=== PATIENT | male | born 1960 | race Caucasian/White ===

== ENCOUNTER 2018-07-18 21:41 | Observation (INO) ==
[2018-07-19] MEDS ORDERED: *HR* Dextrose 50 % in Water (Syg) 50 ML SYRINGE IVP PRN (06:05)
[2018-07-19] MEDS ORDERED: D5% in Water 1,000 ML IVC PRN (06:05)
[2018-07-19] MEDS ORDERED: Dextrose Gel 15 GM/37.5 ML TUBE PO PRN ×2 (06:05)
[2018-07-19 08:02] LABS: Basophils % 0.4 %; Eosinophils # 0.2 K/mcL (0.0-0.6); Eosinophils % 2.6 %; Hematocrit 37.4 % (37.5-50.1); Hemoglobin 11.9 g/dL (12.9-16.9); Immature Granulocytes % 0.7 % (0-4); Lymphocytes # 1.6 K/mcL (0.6-4.6); Lymphocytes % 21.4 %; Mean Corpuscular HGB Conc 31.8 g/dL (31.6-35.5); Mean Corpuscular Hemoglobin 27.1 pg (28.0-33.3); Mean Corpuscular Volume 85.2 fL (83.0-100.0); Mean Platelet Volume 10.9 fL (9.4-12.4); Monocytes # 0.6 K/mcL (0.0-1.3); Monocytes % 7.7 %; Neutrophils # 4.9 K/mcL (1.6-8.9); Platelet Count 234 K/mcL (140-400); Red Blood Count 4.39 M/mcL (4.19-5.50); Red Cell Distribution Width 14.1 % (11.5-14.5); Segmented Neutrophils % 67.2 %
[2018-07-19 08:12] LABS: Prothrombin Time 11.5 Seconds (9.4-12.1)
[2018-07-19 08:15] LABS: Activated Partial Thrombo Time 31.2 Seconds (26.0-36.0)
--- NOTE | 2018-07-19 08:39 | Internal Med History&Physical ---
Date of Encounter: 07/20/18 Time of Encounter: 09:00 Internal Medicine - H&P: HPI Chief complaint: CP History of present illness: Mr. Gonzalez is a 58 year old male gentleman with PMH significant for end stage COPD and end stage CHF with systolic disfunction, severe dilated cardiomyopathy, was evaluated at [facility] FOR LVAD but did not like their service. He presented today with CP on the left side that started last night . The pain is intermittent and associated with SOB and diaphoresis. The patient has a reported EF 15%, AICD in place, he follow with cardiology in [place]. He was evaluated by the ER ot OSH and his initial trop was 0.03. Past Med Surg Social Fam HX - Past Medical History Medical history: cardiomyopathy, CHF, COPD, coronary artery disease, DVT, diabetes, hyperlipidemia, hypertension, renal disease Additional medical history: NICM Psychiatric history: no psych history - Past Surgical History Surgical History: angioplasty/stent, cholecystectomy, orthopedic, other, pacemaker/AICD Additional surgical history: RIGHT SHOULDER. BACK SURGERY. L TKR - Social History Smoking Status: Former smoker Smokeless Tobacco Status: Yes (chew tobacco) Alcohol use: none Drug use: none - Family History Mother Living Status: Age at : 54 Cause of : enlarged heart Hx Family Cardiac Disorders: Yes (Enlarged heart) Hx Family Endocrine Disorder: Yes (DM) Father History Unknown: Yes Internal Medicine - H&P: Meds Bumetanide 2 mg PO TID 06/06/18 [History] Clopidogrel [Plavix] 75 mg PO DAILY 06/06/18 [History] Insulin Glargine,Hum.rec.anlog [Kain Sanchez U-100] 10 unit SQ QAM 06/06/18 [History] Potassium Chloride [K-Tab ER] 10 meq PO DAILY 06/06/18 [History] Albuterol Sulfate [Ventolin Hfa] 2 puff IH Q6H PRN 07/19/18 [History] Carvedilol 12.5 mg PO BID 07/19/18 [History] hydrALAZINE [HydrALAZINE] 25 mg PO TID 07/19/18 [History] ALPRAZolam [Xanax 0.5 MG Tablet] 0.5 mg PO HS PRN 07/20/18 [History] Aspirin [Adult Aspirin Regimen] 81 mg PO QAM 07/20/18 [History] Atorvastatin Calcium [Lipitor] 80 mg PO HS 07/20/18 [History] Gabapentin 600 mg PO TID 07/20/18 [History] Insulin Glargine,Hum.rec.anlog [Basaglar Cam[place] U-100] 68 unit SQ HS 07/20/18 [History] OxyCODONE/APAP 10/325 [Percocet 10/325 MG] 1 tab PO QID 07/20/18 [History] Isosorbide MONOnitrate (24 HR) [Imdur] 30 mg PO DAILY #30 tab.er.24h 07/21/18 [R x] Lisinopril [Zestril] 5 mg PO DAILY #30 tablet 07/21/18 [Rx] Allergy/AdvReac Type Severity Reaction Status Date / Time No Known Allergies Allergy Verified 08/26/15 18:47 All Systems PM: A 10-system review of systems was performed and is negative for pertinent findings except as documented above in the HPI. - Constitutional Vitals: Temp Pulse Resp BP Pulse Ox 97.9 F 66 16 157/77 97 07/19/18 07:20 07/19/18 07:20 07/19/18 07:20 07/19/18 07:20 07/19/18 07:20 Exam: awake present. no chest pain, pressure or palpitations. denies having sob with exertion. stress test preformed and reviewed by cardiology and fixed defect noted but no r eversible defects or ischemia noted. Stable for dc to home with outpt fu. General: awake, alert, appears stated age Cardiovascular:regular rate and rhythm, normal S1 & S2, no rubs, murmurs or gallops. No JVD. no lower extremity edema Lungs:Normal breath sounds, no wheezes, or crackles. Normal respiratory effort on room air Abdomen:Soft, non-tender, non-distended, + bowel sounds Neurological: AAOx3 Internal Med - H&P Results - Labs CBC & Chem 7: 07/21/18 05:57 07/21/18 05:57 Labs: Short CBC 07/19/18 Range/Units 06:36 WBC 7.3 (4.3-11.1) K/mcL Hgb 11.9 L (12.9-16.9) g/dL Hct 37.4 L (37.5-50.1) % Plt Count 234 (140-400) K/mcL Neutrophils # 4.9 (1.6-8.9) K/mcL - Assessment and Plan (1) Chest pain Status: Resolved Assessment and plan: CP in sitting of hx of cardiomyopathy with EF of 10%. No acute ECG changes, troponin first set is negative Hx of LHC in 2016 at [facility], We will obtain records We will trend cardiac enzyms Obtain 2 D echo Consult cardiology. Qualifiers: Chest pain type: other chest pain Qualified Code(s): R07.89 - Other chest pain; R07.8 - Other chest pain (2) Diabetes type 2, controlled Status: Chronic Assessment and plan: We will start insulin sliding scale with coverage Qualifiers: Diabetes mellitus fci insulin use: with ad terminal makeup operator use Diabetes mellitus complication status: with kidney complications Chronic kidney disease stage: stage 3 (moderate) Qualified Code(s): E11.22 - Type 2 diabetes mellitus with diabetic chronic kidney disease; N18.3 - Chronic kidney disease, stage 3 (moderate); Z79.4 - half-way (current) use of insulin (3) COPD (chronic obstructive pulmonary disease) Status: Chronic Assessment and plan: We will start [place] PRN Qualifiers: COPD type: emphysema Emphysema type: unspecified Qualified Code(s): J43.9 - Emphysema, unspecified (4) Cardiomyopathy Status: Chronic Assessment and plan: We will repeat 2D echo Qualifiers: Cardiomyopathy type: unspecified Qualified Code(s): I42.9 - Cardiomyopathy, unspecified (5) CAD (coronary artery disease) Status: Chronic Assessment and plan: We will continue home meds Qualifiers: Coronary Disease-Associated Artery/Lesion type: [place] artery [place] vs. transplanted heart: [place] heart Associated angina: angina presence unspecified Qualified Code(s): I25.10 - Atherosclerotic heart disease of [place] coronary artery without angina pectoris (6) DVT prophylaxis Status: Acute - Time Spent With Patient Total time spent is greater than 50% in coordination of care (as documented) at patient's floor/unit and/or counseling patient:
[2018-07-19] MEDS ORDERED: Ondansetron 4 MG/2 ML VIAL IVP PRN (08:42)
[2018-07-19] MEDS ORDERED: Naloxone 0.4 MG/ML INJ IVP PRN (08:42)
[2018-07-19] MEDS ORDERED: *HR* HYDROcodone/Acet 5/325 mg TABLET PO PRN (08:42)
[2018-07-19] MEDS ORDERED: Acetaminophen 325 MG TABLET PO PRN (08:42)
[2018-07-19 08:49] LABS: Estimated Average Glucose 249 mg/dl; Hemoglobin A1C 10.3 %
[2018-07-19 08:56] LABS: Albumin 3.6 g/dL (3.5-5.7); Albumin/Globulin Ratio 1.1 (1.1-2.2); Bilirubin,Total 0.5 mg/dL (0.3-1.0); Calcium 8.9 mg/dL (8.6-10.3); Globulin 3.4 g/dL (2.4-3.5); Potassium 3.3 mEq/L (3.5-5.1); Troponin I 0.03 ng/mL (< 0.04)
[2018-07-19] MEDS ORDERED: ALPRAZolam 0.5 MG TABLET PO SCH (09:00)
[2018-07-19] MEDS ORDERED: Isosorbide MONOnitrate (24 HR) 30 MG TAB.ER.24H PO SCH (09:00)
[2018-07-19] MEDS: Bumetanide 1 MG TABLET PO SCH (10:08)
[2018-07-19] MEDS: *HR* OxyCODONE/APAP 10/325 TABLET PO PRN ×3 (10:09→23:14)
[2018-07-19] MEDS: Aspirin Enteric Coated 81 MG Tablet PO SCH (10:09)
[2018-07-19] MEDS: Insulin LISPRO 300 UNITS/3 ML VIAL SQ SCH ×4 (11:23→18:04)
--- NOTE | 2018-07-19 12:41 | Cardiology Consult Note ---
Date of Encounter: 07/19/18 Time of Encounter: 12:00 Assessment and Plan Discussion w patient/family: [employer] glitch will not allow for A/P: 1.) Chest pain Atypical/typical features. No acute ECG changes, troponin negative x3. Chest pain free upon exam. Hx of CAD s/p PCI (BMS) to LAD and d RCA at [facility] in July 2015. Recommend nuclear stress test to further evaluate for ischemia. 2.) Cardiomyopathy (mixed) Long standing hx of cardiomyopathy, initially diagnosed in 2008, EF has been as low as 10%. Describes NYHA class III symptoms, stable. Previously followed with [facility], however stopped d/t transportation issues and improved/stable symptoms. Recent ICD gen change 05/[address] Oviedo. Hx of PCI to LAD, dRCA in 2015 at [facility] Now with mixed cardiomyopathy. Most recent TTE demonstrated improved LVEF, 35-40-% in 2018. Continue current CV medications including BB, ACEi, and bumex. Clinically appears euvolemic upon exam. Stricti I&O's, daily weights, Na/fluid restricted diet. 3.) CAD Plan as above. The assessment and plan as outlined above was discussed with the patient and/or family members who expressed understanding and agreement. All questions were answered. Thank you for involving us in the care of your patient. Please call with any questions. The patient will be discussed and reviewed with Dr. Rios; changes to be made accordingly. History of Present Illness Consult date: 07/19/18 Requesting physician: María Akhtar Consult reason: Chest pain Chief complaint: Chest pain History of present illness: Mr. Gonzalez is a 58 year old male with reported hx of NICMP dating back to 2008, CAD s/p PCI, DMII, HTN, HLD, and CKD who presented to the ED with complaints of intermittent chest discomfort that has been ongoing for the past 2 days. Chest discomfort described as nonradiating midsternal heaviness that lasted for seconds at a time and improved without intervention. Associated symptoms include diaphoresis and dyspnea. Patient previously followed at [facility] advanced heart failure clinic, however EF improved. Recent ICD gen change in May with Dr. Oviedo. Troponin negative x3. No acute ischemic ECG changes noted. Most recent CV testing: TTE 03/2018: LVEF 35-40%, global LV systolic dysfunction, severely dilated LV, mild AR, mild-moderate MR [facility] 08/2015: s/p successful PCI to mLAD and dRCA, severely elevated right and left filling heart pressures Past Med Surg Social Fam HX - Past Medical History Attestation: Yes The following information was validated with the patient. Source: patient Medical history: cardiomyopathy, CHF, COPD, coronary artery disease, DVT, diabetes, hyperlipidemia, hypertension, renal disease Additional medical history: NICM Psychiatric history: no psych history - Past Surgical History Surgical History: angioplasty/stent, cholecystectomy, orthopedic, other, pacemak er/AICD Additional surgical history: RIGHT SHOULDER. BACK SURGERY. L TKR - Social History Smoking Status: Former smoker Smokeless Tobacco Status: Yes (chew tobacco) Alcohol use: none Drug use: none - Family History Mother Living Status: Age at : 54 Cause of : enlarged heart Hx Family Cardiac Disorders: Yes (Enlarged heart) Hx Family Endocrine Disorder: Yes (DM) Father History Unknown: Yes Medications and Allergies Gabapentin [Neurontin] 600 mg PO TID 08/26/15 [History] Oxycodone HCl/Acetaminophen [Percocet 10-325 mg Tablet] 1 tab PO Q6HR PRN 08/26/15 [History] ALPRAZolam [Xanax 0.25 MG Tablet] 0.5 mg PO HS 06/06/18 [History] Atorvastatin [Lipitor] 80 mg PO DAILY 06/06/18 [History] Bumetanide 2 mg PO TID 06/06/18 [History] Clopidogrel [Plavix] 75 mg PO DAILY 06/06/18 [History] Insulin Glargine,Hum.rec.anlog [Basaglar Kwikpen U-100] 10 unit SQ QAM 06/06/18 [History] Insulin Glargine,Hum.rec.anlog [Lantus Solostar] 70 unit SQ HS 06/06/18 [History] Potassium Chloride [K-Tab ER] 10 meq PO DAILY 06/06/18 [History] Aspirin [Lo-Dose Aspirin EC] 81 mg PO DAILY 07/19/18 [History] Carvedilol 12.5 mg PO BID 07/19/18 [History] Ventolin Hfa 07/19/18 [History] hydrALAZINE [HydrALAZINE] 25 mg PO TID 07/19/18 [History] Allergy/AdvReac Type Severity Reaction Status Date / Time No Known Allergies Allergy Verified 08/26/15 18:47 All Systems Review: The remainder of the systems were reviewed and are negative - Cardiovascular Cardiovascular: as per HPI Physical Examination Vital Signs, Last 4 Hours Temp Pulse Resp BP Pulse Ox 07/19/18 11:08 97.8 F 62 16 178/88 98 General: Conversant, Other (morbidly obese) HEENT: Atraumatic, Normocephaly Cardiac: Reg Rate and Rhythm, Normal S1 and S2 Lungs: Normal Breath Sounds Neuro: Alert and responsive Abdomen: Soft Skin: No rashes noted on visualized skin Musculoskeletal: No Chest Wall Tenderness Extremities: Other (mild, non-pitting BLE edema) Results 07/19/18 06:36 07/19/18 06:36 Lab Results 07/19/18 07/19/18 07/19/18 06:36 06:36 06:36 WBC 7.3 Hgb 11.9 L Hct 37.4 L Plt Count 234 INR 1.0 APTT 31.2 Sodium 138 Potassium 3.3 L Chloride 101 Carbon Dioxide 27 BUN 22 H Creatinine 2.10 H Glucose 259 H Calcium 8.9 Total Bilirubin 0.5 AST 12 L ALT 9 Alkaline Phosphatase 181 H Troponin I 0.03 Active Medications Acetaminophen (Tylenol) 650 mg PO Q6HR PRN PRN Reason: Mild Pain/Fever Stop: 01/18/19 08:43 Alprazolam (Xanax) 0.5 mg PO DAILY [facility]; Protocol Stop: 01/18/19 09:01 Last Admin: 07/19/18 10:02 Dose: Not Given Documented by: Aspirin (Aspirin Ec) 81 mg PO DAILY [facility] Stop: 01/18/19 09:01 Last Admin: 07/19/18 10:09 Dose: 81 mg Documented by: Atorvastatin Calcium (Lipitor) 80 mg PO DAILY [facility] Stop: 01/18/19 09:01 Last Admin: 07/19/18 10:09 Dose: 80 mg Documented by: Bumetanide (Bumex) 2 mg PO DAILY [facility] Stop: 01/18/19 09:01 Last Admin: 07/19/18 10:08 Dose: 2 mg Documented by: Carvedilol (Coreg) 12.5 mg PO BIDWM [facility] Stop: 01/18/19 11:31 Last Admin: 07/19/18 11:33 Dose: 12.5 mg Documented by: Clopidogrel Bisulfate (Plavix) 75 mg PO DAILY [facility] Stop: 01/18/19 09:01 Last Admin: 07/19/18 10:09 Dose: 75 mg Documented by: Dextrose/Water (Dextrose 50% (Syg)) 25 ml IVP AD PRN PRN Reason: Hypoglycemia Stop: 01/18/19 06:06 Gabapentin (Neurontin) 600 mg PO BID [facility] Stop: 01/18/19 21:01 Glucagon (Glucagen) 1 mg IM ONCE PRN PRN Reason: Hypoglycemia Stop: 01/18/19 06:06 Glucose (Gluctose) 15 gm PO ONCE PRN PRN Reason: Hypoglycemia Stop: 01/18/19 06:06 Glucose (Gluctose) 30 gm PO ONCE PRN PRN Reason: Hypoglycemia Stop: 01/18/19 06:06 Hydralazine HCl (Hydralazine) 25 mg PO TID [facility] Stop: 01/18/19 15:01 Dextrose (Dextrose 5%) 1,000 mls @ 100 mls/hr IVC .Q10H PRN PRN Reason: HYPOGLYCEMIA Stop: 01/18/19 06:06 Insulin Human Lispro (Humalog) 0 units SQ Q6HR [facility]; Protocol Stop: 01/18/19 12:01 Last Admin: 07/19/18 11:23 Dose: Not Given Documented by: Insulin Human Lispro (Humalog) 0 units SQ Q6HR [facility]; Protocol Stop: 01/18/19 12:01 Last Admin: 07/19/18 11:23 Dose: Not Given Documented by: Isosorbide Mononitrate (Imdur) 30 mg PO DAILY [facility] Stop: 01/18/19 09:01 Last Admin: 07/19/18 10:02 Dose: Not Given Documented by: Lisinopril (Zestril) 5 mg PO DAILY [facility]; Protocol Stop: 01/18/19 09:01 Last Admin: 07/19/18 10:03 Dose: Not Given Documented by: Naloxone HCl (Narcan) 0.4 mg IVP Q2MPRN PRN PRN Reason: SEE COMMENTS Stop: 01/18/19 08:43 Ondansetron HCl (Zofran) 4 mg IVP Q8HR PRN PRN Reason: Nausea And Vomiting Stop: 01/18/19 08:43 Oxycodone/Acetaminophen (Percocet 10/325) 1 each PO Q6HR PRN PRN Reason: Pain Stop: 01/18/19 09:13 Last Admin: 07/19/18 10:09 Dose: 1 each Documented by: - Imaging and Cardiology Echo: report reviewed Cardiac cath: report reviewed - EKG Interpretation EKG results cardiology: personally reviewed Consult Discharge Plan - Plan Referrals: Augustus Oviedo MD [Primary Care Provider] -
[2018-07-19] MEDS: hydrALAZINE 25 MG TABLET PO SCH ×2 (15:37→20:54)
[2018-07-19] MEDS ORDERED: Perflutren Lipid Microsphere 1.3 ML in 0.9 % Sodium Chloride 8.7 ML IVP ONE (16:10)
[2018-07-19] MEDS ORDERED: Isosorbide MONOnitrate (24 HR) 30 MG TAB.ER.24H PO PRN (19:44)
[2018-07-19] MEDS: Gabapentin 300 MG CAPSULE PO SCH (20:54)
[2018-07-19] MEDS: ALPRAZolam 0.5 MG TABLET PO SCH (20:55)
[2018-07-19] MEDS ORDERED: Gabapentin 300 MG CAPSULE PO SCH (21:00)
[2018-07-20] MEDS: Insulin LISPRO 300 UNITS/3 ML VIAL SQ SCH ×4 (01:11→17:57)
[2018-07-20 01:43] LABS: Basophils % 0.5 %; Eosinophils # 0.2 K/mcL (0.0-0.6); Eosinophils % 2.6 %; Hematocrit 34.7 % (37.5-50.1); Hemoglobin 11.4 g/dL (12.9-16.9); Immature Granulocytes % 0.5 % (0-4); Lymphocytes # 1.4 K/mcL (0.6-4.6); Lymphocytes % 21.3 %; Mean Corpuscular HGB Conc 32.9 g/dL (31.6-35.5); Mean Corpuscular Hemoglobin 27.4 pg (28.0-33.3); Mean Corpuscular Volume 83.4 fL (83.0-100.0); Mean Platelet Volume 10.7 fL (9.4-12.4); Monocytes # 0.5 K/mcL (0.0-1.3); Monocytes % 7.8 %; Neutrophils # 4.3 K/mcL (1.6-8.9); Platelet Count 221 K/mcL (140-400); Red Blood Count 4.16 M/mcL (4.19-5.50); Segmented Neutrophils % 67.3 %
[2018-07-20 01:53] LABS: Prothrombin Time 11.4 Seconds (9.4-12.1)
[2018-07-20 01:56] LABS: Activated Partial Thrombo Time 31.5 Seconds (26.0-36.0)
[2018-07-20 02:03] LABS: Albumin 3.3 g/dL (3.5-5.7); Albumin/Globulin Ratio 1.1 (1.1-2.2); Bilirubin,Total 0.5 mg/dL (0.3-1.0); Calcium 8.6 mg/dL (8.6-10.3); Chol/HDL Ratio 6.1 (0-4.9); Globulin 3.1 g/dL (2.4-3.5); Phosphorous 3.4 mg/dL (2.7-4.5); Potassium 3.6 mEq/L (3.5-5.1); Total Protein 6.4 g/dL (6.4-8.9)
[2018-07-20] MEDS ORDERED: Regadenoson 0.4 MG/5 ML SYRINGE IVP ONE (06:06)
[2018-07-20] MEDS: Aspirin Enteric Coated 81 MG Tablet PO SCH (10:36)
[2018-07-20] MEDS: Gabapentin 300 MG CAPSULE PO SCH ×2 (10:36→20:40)
[2018-07-20] MEDS: Bumetanide 1 MG TABLET PO SCH (10:36)
[2018-07-20] MEDS: hydrALAZINE 25 MG TABLET PO SCH ×2 (10:36→13:51)
[2018-07-20] MEDS: *HR* OxyCODONE/APAP 10/325 TABLET PO PRN ×2 (10:38→20:40)
--- NOTE | 2018-07-20 14:08 | Internal Med Progress Note ---
<Ptaricia Jensen - Last Filed: 07/20/18 14:17> Hospitalist Progress Note - Encounter Date of Encounter: 07/20/18 - Exam Vitals: Temp Pulse Resp BP Pulse Ox 98.2 F 68 16 170/88 99 07/20/18 11:54 07/20/18 11:54 07/20/18 11:54 07/20/18 11:54 07/20/18 11:54 - Assessment and Plan (1) Diabetes type 2, controlled Current Visit: No Status: Chronic (2) COPD (chronic obstructive pulmonary disease) Current Visit: No Status: Chronic (3) Cardiomyopathy Current Visit: Yes Status: Acute (4) CAD (coronary artery disease) Current Visit: Yes Status: Acute - Time Spent with Patient Total time spent is greater than 50% in coordination of care (as documented) at patient's floor/unit and/or counseling patient: Internal Medicine: Result - Labs CBC & Chem 7: 07/20/18 01:19 07/20/18 01:19 Labs: Short CBC 07/20/18 Range/Units 01:19 WBC 6.4 (4.3-11.1) K/mcL Hgb 11.4 L (12.9-16.9) g/dL Hct 34.7 L (37.5-50.1) % Plt Count 221 (140-400) K/mcL Neutrophils # 4.3 (1.6-8.9) K/mcL BMP 07/20/18 01:19 Sodium 139 Potassium 3.6 Chloride 104 Carbon Dioxide 28 BUN 24 H Creatinine 1.97 H Glucose 235 H Calcium 8.6 Cardiac Enzymes 07/19/18 07/19/18 07/20/18 Range/Units 13:46 19:30 01:19 Troponin I < 0.03 < 0.03 < 0.03 (< 0.04) ng/mL Liver Function 07/20/18 Range/Units 01:19 Total Bilirubin 0.5 (0.3-1.0) mg/dL AST 11 L (13-39) Units/L ALT 8 (7-52) Units/L Alkaline Phosphatase 160 H (34-104) Units/L Albumin 3.3 L (3.5-5.7) g/dL - ABG Interpretation ABG results: PT/INR, D-dimer PT 11.4 Seconds (9.4-12.1) 07/20/18 01:19 - Impressions Impressions Echocardiogram Limited Views 07/19/18 08:45 Impressions: LVEF 40%. Global left ventricular systolic dysfunction. Moderately dilated left ventricle. Left Ventricular Wall Motion: Rest Echo Findings The apex, apical inferior, mid inferior, basal inferior, apical anterior, mid anterior, basal anterior, apical septal, mid inferior septal, basal inferior septal, apical lateral, mid anterior lateral, basal anterior lateral, mid anterior septal, mid inferior lateral, basal anterior septal and basal inferior lateral [place] were hypokinetic. Findings: Study Quality * Technically adequate exam. ECG Findings * Normal sinus rhythm. Left Ventricle * LVEF 40%.Global left ventricular systolic dysfunction.. * Moderately dilated left ventricle. * Definity echo contrast was used. * Atypical septal motion noted. * There is no LV thrombus. * Consult Discharge Plan - Plan Referrals: Latanya Gerardo, BOTTLING [employer] OPERATOR [Advanced Practice Nurse] - 08/04/18 8:15 am - Attending Attestation I examined this patient and my medical decision-making was reviewed with the Resident Physician Dr Rolle. I agree with the documented findings, disposition and treatment plan as described except to the extent set forth below. Mr Gonzalez is being observed for chest pain with a significant history of end stage CHF with prior heart transplant/LVAD eval awake, appears to be minimizing his sxs and sits at bedside rolling her eyes and shaking her head. He denies any pain or pressure since admission. no sob or palpitations. Has had nausea at times which he related to be ing npo. He says he doesn't really have to follow a fluid restriction at home or he gets dehydrated but it used to be 2L and that he is comfortable with his weight shifting about 7.5-10 lbs at home which is routinely does. He left room to go to bathroom and states he has over the last few weeks been very sob with any exertion, also at rest, gets hot sweats, nauseased and te lls her he is having chest pain and his heart is "fluttering". gen- alert, awake,appears stated age eyes- pupils equal round cv- reg rate and rhythm, normal s1,s2 lungs- ctabl, no wheezing, rhonchi or crackles neuro- AAOx3, CN grossly intact Chest Pain Hx CAD s/p PCI to LAD and RCA AICD Dilated CM with outpt EF 15% -trops neg, echo here reviewed and appears to have regained some function EF 40 % with global LV dysfunction -awaiting stress test, plan is for tomorrow -cards following -cont home med regimen CKD, stage UK-appears at baseline, cont to monitor DM- home insulin dosing lantus 10 q am and 70 q hs--given he will be npo p mn will decrease home HS insulin to 30 tonight, prn hypoglycemics + SSI further diagnoses and plan as noted by resident <Jos Rolle - Last Filed: 07/20/18 19:38> Hospitalist Progress Note - Encounter Date of Encounter: 07/20/18 Time of Encounter: 09:00 - Subjective Interval History: Patient was seen and examined at bedside. He states that he is feeling well today. Denies having any shortness of breath or chest pain. He is scheduled for a stress test tomorrow. He will be nothing by mouth at midnight. He is not currently requiring any oxygen. - Exam Vitals: Temp Pulse Resp BP Pulse Ox 98.2 F 68 16 170/88 99 07/20/18 11:54 07/20/18 11:54 07/20/18 11:54 07/20/18 11:54 07/20/18 11:54 Exam: General: A&O X3, conversant, no acute distress Head: atraumatic, normocephalic Eye: PERRL, EOMI, conjuntiva pink, sclera anicteric Neck: Supple, trachea midline; No lymphadenopathy Respiratory: CTAB. No accessory muscle use, wheezes, rales, or rhonchi Cardiovascular: RRR, +S1, +S2; no murmurs, rubs, gallops Abdomen: Soft, nontender Extremities: warm, radial pulses palpable and symmetrical Psychiatric: Normal affect, normal mood Skin: Dry, intact - Assessment and Plan (1) Chest pain Current Visit: Yes Status: Acute Assessment and Plan: - Initially presented with chest pain - He has a known cardiac history; history of CAD status post PCI - Ischemic workup so far has been negative; troponin negative Plan: - Cardiology is consulted - He is nothing by mouth at midnight - Will undergo stress test tomorrow (2) Cardiomyopathy Current Visit: Yes Status: Acute Assessment and Plan: - History of cardiomyopathy with AICD placement - Most recent TTE demonstrated improved LVEF, 35-40-% in 2018 Plan - Cardiology following (3) Diabetes Current Visit: Yes Status: Acute Assessment and Plan: - Sliding scale insulin (4) Chronic kidney disease Current Visit: Yes Status: Acute Assessment and Plan: - Repeat a.m. labs - Time Spent with Patient Total time spent is greater than 50% in coordination of care (as documented) at patient's floor/unit and/or counseling patient: Internal Medicine: Result - Labs CBC & Chem 7: 07/20/18 01:19 07/20/18 01:19 Labs: Short CBC 07/20/18 Range/Units 01:19 WBC 6.4 (4.3-11.1) K/mcL Hgb 11.4 L (12.9-16.9) g/dL Hct 34.7 L (37.5-50.1) % Plt Count 221 (140-400) K/mcL Neutrophils # 4.3 (1.6-8.9) K/mcL BMP 07/20/18 01:19 Sodium 139 Potassium 3.6 Chloride 104 Carbon Dioxide 28 BUN 24 H Creatinine 1.97 H Glucose 235 H Calcium 8.6 Cardiac Enzymes 07/19/18 07/19/18 07/20/18 Range/Units 13:46 19:30 01:19 Troponin I < 0.03 < 0.03 < 0.03 (< 0.04) ng/mL Liver Function 07/20/18 Range/Units 01:19 Total Bilirubin 0.5 (0.3-1.0) mg/dL AST 11 L (13-39) Units/L ALT 8 (7-52) Units/L Alkaline Phosphatase 160 H (34-104) Units/L Albumin 3.3 L (3.5-5.7) g/dL - ABG Interpretation ABG results: PT/INR, D-dimer PT 11.4 Seconds (9.4-12.1) 07/20/18 01:19 - Impressions Impressions Echocardiogram Limited Views 07/19/18 08:45 Impressions: LVEF 40%. Global left ventricular systolic dysfunction. Moderately dilated left ventricle. Left Ventricular Wall Motion: Rest Echo Findings The apex, apical inferior, mid inferior, basal inferior, apical anterior, mid anterior, basal anterior, apical septal, mid inferior septal, basal inferior septal, apical lateral, mid anterior lateral, basal anterior lateral, mid anterior septal, mid inferior lateral, basal anterior septal and basal inferior lateral [place] were hypokinetic. Findings: Study Quality * Technically adequate exam. ECG Findings * Normal sinus rhythm. Left Ventricle * LVEF 40%.Global left ventricular systolic dysfunction.. * Moderately dilated left ventricle. * Definity echo contrast was used. * Atypical septal motion noted. * There is no LV thrombus. 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
[2018-07-20] MEDS: ALPRAZolam 0.5 MG TABLET PO SCH (20:40)
[2018-07-20] MEDS ORDERED: Insulin LISPRO 300 UNITS/3 ML VIAL SQ SCH (21:00)
[2018-07-20] MEDS ORDERED: Insulin DETEMIR 100 UNIT/ML X5UNITS SQ SCH (21:00)
[2018-07-21] MEDS: hydrALAZINE 25 MG TABLET PO SCH ×3 (00:51→13:34)
[2018-07-21] MEDS ORDERED: Regadenoson 0.4 MG/5 ML SYRINGE IVP ONE (06:09)
[2018-07-21 07:21] LABS: Potassium 3.7 mEq/L (3.5-5.1)
[2018-07-21 07:25] LABS: Basophils % 0.4 %; Eosinophils # 0.2 K/mcL (0.0-0.6); Eosinophils % 2.4 %; Hematocrit 36.4 % (37.5-50.1); Hemoglobin 11.5 g/dL (12.9-16.9); Immature Granulocytes % 0.7 % (0-4); Lymphocytes # 1.7 K/mcL (0.6-4.6); Lymphocytes % 23.5 %; Mean Corpuscular HGB Conc 31.6 g/dL (31.6-35.5); Mean Corpuscular Volume 85.4 fL (83.0-100.0); Mean Platelet Volume 10.9 fL (9.4-12.4); Monocytes # 0.6 K/mcL (0.0-1.3); Neutrophils # 4.6 K/mcL (1.6-8.9); Platelet Count 228 K/mcL (140-400); Red Blood Count 4.26 M/mcL (4.19-5.50); Red Cell Distribution Width 14.1 % (11.5-14.5)
[2018-07-21] MEDS: Aspirin Enteric Coated 81 MG Tablet PO SCH (10:31)
[2018-07-21] MEDS: Gabapentin 300 MG CAPSULE PO SCH (10:31)
[2018-07-21] MEDS: Bumetanide 1 MG TABLET PO SCH (10:31)
[2018-07-21] MEDS: Insulin LISPRO 300 UNITS/3 ML VIAL SQ SCH ×2 (11:09→13:35)
[2018-07-21] MEDS: *HR* OxyCODONE/APAP 10/325 TABLET PO PRN (11:17)
--- NOTE | 2018-07-21 11:40 | Event Note ---
Date of Encounter: 07/21/18 Time of Encounter: 11:38 - Cardiology Event Note Stress test negative for ischemia or infarct. TTE with LVEF 40%, improved from previous. Will resume imdur. No further inpatient cardiology recs. Will arrange outpatient follow up.
[2018-07-21] MEDS ORDERED: Isosorbide MONOnitrate (24 HR) 30 MG TAB.ER.24H PO SCH (11:45)
[2018-07-21 15:10] VITALS: BP 127/68
--- NOTE | 2018-07-21 15:10 | Discharge Summary ---
- NOTES TO OUTPATIENT PROVIDER Notes to Outpatient Provider: stress test obtained by cards for chest pain, negative for reversible ischemia. No LHC required. No med changes. He may follow up with cards outpt. Orders not resulted at time of discharge: Pending orders 07/21/18 08:00 NM clemente perf SPECT multi [NM] Routine Date of Encounter: 07/21/18 Time of Encounter: 10:30 - Discharge Diagnosis (1) Diabetes type 2, controlled Priority: Secondary Status: Chronic Qualifiers: Diabetes mellitus intermediate insulin use: with terminal system operator use Diabetes mellitus complication status: with kidney complications Chronic kidney disease stage: stage 3 (moderate) Qualified Code(s): E11.22 - Type 2 diabetes mellitus with diabetic chronic kidney disease; N18.3 - Chronic kidney disease, stage 3 (moderate); Z79.4 - termite treater (current) use of insulin (2) COPD (chronic obstructive pulmonary disease) Priority: Secondary Status: Chronic Qualifiers: COPD type: emphysema Emphysema type: unspecified Qualified Code(s): J43.9 - Emphysema, unspecified (3) Cardiomyopathy Priority: Secondary Status: Chronic Qualifiers: Cardiomyopathy type: unspecified Qualified Code(s): I42.9 - Cardiomyopathy, unspecified (4) CAD (coronary artery disease) Priority: Secondary Status: Chronic Qualifiers: Coronary Disease-Associated Artery/Lesion type: [place] artery [place] vs. transplanted heart: [place] heart Associated angina: angina presence unspecified Qualified Code(s): I25.10 - Atherosclerotic heart disease of [place] coronary artery without angina pectoris (5) Chest pain Priority: Primary Status: Resolved Qualifiers: Chest pain type: other chest pain Qualified Code(s): R07.89 - Other chest pain; R07.8 - Other chest pain Hospital course: Mr. Gonzalez is a 58 year old male with pmhx Hx of CAD s/p PCI (BMS) to LAD and d RCA at [facility] in July 2015, Long standing hx of cardiomyopathy, initially diagnosed in 2008, EF has been as low as 10%. Previously followed with [facility], however stopped d/t transportation issues. Recent ICD gen change 05/[address] Oviedo. Also COPD, diabetes, hyperlipidemia, hypertension, renal disease stage unknown but with creat at baseline on chart review this admission. He was observed for atypical chest pain. He denied any chest pain from time of admission on. Cardiology followed him. Trops negative. EKG withou acute ischemic changes. Echo and stress test was obtained. Echo showed EF 40% and global LV systolic dysfunction and moderately dilated LV. There were no ischemic changes, extensive inferior infarct (fixed inferior/mid-basal inferolateral and inferoseptal of large size and severity) noted. EF 28% on stress. Cardiology reviewed and no LHC required. He was restarted on his home lisinopril and Imdur was added. he was continued on his cecilio emedication regimen including asa, statin, BB, plavix as well. He was discharged to home in stable condition with med rx for new meds and cards arranging outpt cards follow up. Discharge discussed with: patient, family, nurse Time spent discussing smoking cessation with patient: more than 10 minutes - Time Spent with Patient Total time spent providing and/or coordinating discharge services: Time spent: Less than 30 minutes (25 min) - Discharge Medications Prescriptions: New Isosorbide MONOnitrate (24 HR) [Imdur] 30 mg PO DAILY #30 tab.er.24h Lisinopril [Zestril] 5 mg PO DAILY #30 tablet Continued Bumetanide 2 mg PO TID Clopidogrel [Plavix] 75 mg PO DAILY Insulin Glargine,Hum.rec.anlog [Basaglar Kwikpen U-100] 10 unit SQ QAM Potassium Chloride [K-Tab ER] 10 meq PO DAILY Albuterol Sulfate [Ventolin Hfa] 2 puff IH Q6H PRN PRN Reason: Shortness Of Breath Carvedilol 12.5 mg PO BID hydrALAZINE [HydrALAZINE] 25 mg PO TID ALPRAZolam [Xanax 0.5 MG Tablet] 0.5 mg PO HS PRN PRN Reason: Anxiety Aspirin [Adult Aspirin Regimen] 81 mg PO QAM Atorvastatin Calcium [Lipitor] 80 mg PO HS Gabapentin 600 mg PO TID Insulin Glargine,Hum.rec.anlog [Basaglar Kwikpen U-100] 68 unit SQ HS OxyCODONE/APAP 10/325 [Percocet 10/325 MG] 1 tab PO QID Home Medications: Bumetanide 2 mg PO TID 06/06/18 [History] Clopidogrel [Plavix] 75 mg PO DAILY 06/06/18 [History] Insulin Glargine,Hum.rec.anlog [Basaglar Kwikpen U-100] 10 unit SQ QAM 06/06/18 [History] Potassium Chloride [K-Tab ER] 10 meq PO DAILY 06/06/18 [History] Albuterol Sulfate [Ventolin Hfa] 2 puff IH Q6H PRN 07/19/18 [History] Carvedilol 12.5 mg PO BID 07/19/18 [History] hydrALAZINE [HydrALAZINE] 25 mg PO TID 07/19/18 [History] ALPRAZolam [Xanax 0.5 MG Tablet] 0.5 mg PO HS PRN 07/20/18 [History] Aspirin [Adult Aspirin Regimen] 81 mg PO QAM 07/20/18 [History] Atorvastatin Calcium [Lipitor] 80 mg PO HS 07/20/18 [History] Gabapentin 600 mg PO TID 07/20/18 [History] Insulin Glargine,Hum.rec.anlog [Basaglar Kwikpen U-100] 68 unit SQ HS 07/20/18 [History] OxyCODONE/APAP 10/325 [Percocet 10/325 MG] 1 tab PO QID 07/20/18 [History] Isosorbide MONOnitrate (24 HR) [Imdur] 30 mg PO DAILY #30 tab.er.24h 07/21/18 [Rx] Lisinopril [Zestril] 5 mg PO DAILY #30 tablet 07/21/18 [Rx] Allergies/Adverse Reactions: Allergy/AdvReac Type Severity Reaction Status Date / Time No Known Allergies Allergy Verified 08/26/15 18:47 Date of admission: 07/19/18 04:55 Primary care physician: Augustus Oviedo, Discharging clinician: Patricia Jensen - Constitutional Vitals: Temp Pulse Resp BP Pulse Ox 97.7 F 68 16 164/82 97 07/21/18 10:56 07/21/18 10:56 07/21/18 10:56 07/21/18 10:56 07/21/18 10:56 Exam: awake present. no chest pain, pressure or palpitations. denies having sob with exertion. stress test preformed and reviewed by cardiology and fixed defect noted but no reversible defects or ischemia noted. Stable for dc to home with outpt fu. General: awake, alert, appears stated age Cardiovascular:regular rate and rhythm, normal S1 & S2, no rubs, murmurs or gallops. No JVD. no lower extremity edema Lungs:Normal breath sounds, no wheezes, or crackles. Normal respiratory effort on room air Abdomen:Soft, non-tender, non-distended, + bowel sounds Neurological: AAOx3 - Patient Status Disposition: Home, Self-Care Condition: Good Overall status at discharge: patient is back to baseline - Discharge Instructions Follow Up With: Latanya Gerardo CNP [Advanced Practice Nurse] - 08/04/18 8:15 am Juan Rios MD [Partnered Physician] - (cardiology arranging follow up and should call with appt) Additional Instructions: Continue on your home fluid restriction and cardiac diet Your home medications are continued. You are receiving a prescription for Lisinopril and Imdur which cardiology recommends you take on discharge. Your prescription was sent to your [facility]. This is a 30 day supply. That means you need to see your healthcare business analyst or PCP for refills of the medication. - Diet and Activity Activity: increase activity as tolerated Diet: low fat, low cholesterol, low salt diet, other (resume home fluid restriction)
== END 2018-07-21 16:15 | disposition home or self-care (01) ==
LOC: 3BNU → SUATTDRO 07-19 04:55
PROVIDERS: ADMIT Pediatrics; ATTEND Internal Medicine

== ENCOUNTER 2019-11-01 10:07 | Inpatient (IN) ==
[~2019-11-01 10:07] MED LIST: Acetaminophen IV 1,000 MG/100 ML INFUS..BTL IVPB ONE; Famotidine 20 MG/2 ML VIAL IVP ONE
[2019-11-01] MEDS ORDERED: CeFAZolin Syr 2,000MG/20 ML 2,000 MG/20 ML SYRINGE IVPB ONE (10:31)
[2019-11-01] MEDS ORDERED: Ringers Solution, Lactated 1,000 ML IVC SCH (10:45)
[2019-11-01] MEDS ORDERED: Ondansetron 4 MG/2 ML VIAL IVP ONE ×2 (11:21→15:50)
[2019-11-01] MEDS ORDERED: *HR* OxyCODONE Immed Rel 5 MG TABLET PO PRN (11:21)
[2019-11-01] MEDS ORDERED: *HR* Rocuronium Bromide 50 MG/5 ML VIAL ONE (11:38)
[2019-11-01] MEDS ORDERED: Ondansetron 4 MG/2 ML VIAL ONE (11:38)
[2019-11-01] MEDS ORDERED: Dexamethasone 4 MG/ML VIAL ONE ×2 (11:38→11:43)
[2019-11-01] MEDS ORDERED: Lidocaine -MPF 4% 5 ML AMPUL ONE (11:38)
[2019-11-01] MEDS ORDERED: *HR* Propofol 200 MG/20 ML VIAL IVP ONE ×3 (11:38→14:09)
[2019-11-01] MEDS ORDERED: Lidocaine -MPF 2% 2 ML VIAL ONE (11:38)
[2019-11-01] MEDS ORDERED: *HR* FentaNYL (PF) 100 MCG/2 ML VIAL ONE (11:38)
[2019-11-01] MEDS ORDERED: *HR* Midazolam HCl 2 MG/2 ML VIAL ONE (11:38)
[2019-11-01] MEDS ORDERED: Lidocaine 1% 20 ML MDV ONE (11:42)
[2019-11-01] MEDS ORDERED: Ropivacaine/PF 0.5% 30 ML VIAL ONE (11:45)
[2019-11-01] MEDS ORDERED: *HR* OxyCODONE/APAP 5/325 TABLET PO PRN (12:06)
[2019-11-01] MEDS ORDERED: Nitroglycerin 0.4 MG TAB.SUBL SL SCH (12:15)
[2019-11-01] MEDS ORDERED: *HR* Dextrose 50 % in Water (Vial) 50 ML VIAL IVP PRN ×2 (12:21→15:50)
[2019-11-01] MEDS ORDERED: D5% in Water 1,000 ML IVC PRN ×2 (12:21→15:50)
[2019-11-01] MEDS ORDERED: Dextrose Gel 15 GM/37.5 ML TUBE PO PRN ×4 (12:21→15:50)
[2019-11-01] MEDS ORDERED: Gabapentin 300 MG CAPSULE PO SCH (15:00)
[2019-11-01] MEDS: Ringers Solution, Lactated 1,000 ML IVC SCH (16:29)
[2019-11-01] MEDS: Insulin LISPRO 300 UNITS/3 ML VIAL SQ SCH (16:29)
[2019-11-01] MEDS ORDERED: Insulin LISPRO 300 UNITS/3 ML VIAL SQ SCH (16:30)
[2019-11-01] MEDS ORDERED: carvediloL 6.25 MG TABLET PO SCH (17:00)
[2019-11-01] MEDS: carvediloL 6.25 MG TABLET PO SCH (17:23)
[2019-11-01] MEDS: *HR* OxyCODONE/APAP 5/325 TABLET PO PRN ×2 (18:04→23:19)
[2019-11-01] MEDS ORDERED: CeFAZolin 2 GM/120 ML BAG IVPB SCH (19:00)
[2019-11-01] MEDS ORDERED: Isosorbide MONOnitrate (24 HR) 30 MG TAB.ER.24H PO ONE (19:00)
[2019-11-01] MEDS: Metoprolol XL (24 HR) Succ 25 MG TAB.ER.24H PO SCH (19:51)
[2019-11-01] MEDS: Gabapentin 300 MG CAPSULE PO SCH (19:51)
[2019-11-01] MEDS: CeFAZolin 2 GM/120 ML BAG IVPB SCH (19:54)
[2019-11-02] MEDS ORDERED: NIFEdipine 10 MG CAPSULE PO ONE (00:13)
[2019-11-02] MEDS: *HR* OxyCODONE/APAP 5/325 TABLET PO PRN ×5 (03:47→21:36)
[2019-11-02] MEDS: CeFAZolin 2 GM/120 ML BAG IVPB SCH (04:40)
[2019-11-02 05:29] LABS: Basophils % 0.1 %; Hematocrit 36.5 % (37.5-50.1); Hemoglobin 11.8 g/dL (12.9-16.9); Immature Granulocytes % 0.4 % (0-4); Lymphocytes # 0.9 K/mcL (0.6-4.6); Lymphocytes % 7.6 %; Mean Corpuscular HGB Conc 32.3 g/dL (31.6-35.5); Mean Corpuscular Hemoglobin 28.8 pg (28.0-33.3); Mean Platelet Volume 11.1 fL (9.4-12.4); Monocytes # 0.6 K/mcL (0.0-1.3); Monocytes % 5.6 %; Neutrophils # 9.7 K/mcL (1.6-8.9); Platelet Count 192 K/mcL (140-400); Red Cell Distribution Width 13.7 % (11.5-14.5); Segmented Neutrophils % 86.3 %; White Blood Count 11.3 K/mcL (4.3-11.1)
[2019-11-02 05:49] LABS: Albumin 3.2 g/dL (3.5-5.7); Albumin/Globulin Ratio 1.1 (1.1-2.2); Bilirubin,Total 0.7 mg/dL (0.3-1.0); Globulin 2.9 g/dL (2.4-3.5); Potassium 4.4 mEq/L (3.5-5.1); Total Protein 6.1 g/dL (6.4-8.9)
[2019-11-02] MEDS: Insulin LISPRO 300 UNITS/3 ML VIAL SQ SCH ×3 (08:51→17:21)
[2019-11-02] MEDS: Gabapentin 300 MG CAPSULE PO SCH ×3 (08:52→20:23)
[2019-11-02] MEDS: carvediloL 6.25 MG TABLET PO SCH ×2 (08:52→17:20)
[2019-11-02] MEDS: Spironolactone 25 MG TABLET PO SCH (08:52)
[2019-11-02] MEDS: Metoprolol XL (24 HR) Succ 25 MG TAB.ER.24H PO SCH (08:53)
[2019-11-02] MEDS: Torsemide 20 MG TABLET PO SCH (08:53)
[2019-11-02] MEDS ORDERED: Spironolactone 25 MG TABLET PO SCH (09:00)
[2019-11-02] MEDS ORDERED: ISOSORBIDE MONONITRATE 20 MG PO SCH ×2 (09:00)
[2019-11-02] MEDS ORDERED: Torsemide 20 MG TABLET PO SCH (09:00)
[2019-11-02 10:00] LABS: Estimated Average Glucose 169 mg/dl
[2019-11-02] MEDS: amLODIPine 5 MG TABLET PO SCH (11:55)
[2019-11-02] MEDS: Isosorbide MONOnitrate (24 HR) 30 MG TAB.ER.24H PO SCH (12:55)
[2019-11-02] MEDS: Ringers Solution, Lactated 1,000 ML IVC SCH (20:20)
[2019-11-03] MEDS: *HR* OxyCODONE/APAP 5/325 TABLET PO PRN ×4 (03:46→18:14)
[2019-11-03 09:08] LABS: Basophils % 0.3 %; Eosinophils # 0.2 K/mcL (0.0-0.6); Eosinophils % 2.5 %; Hematocrit 35.2 % (37.5-50.1); Hemoglobin 11.2 g/dL (12.9-16.9); Immature Granulocytes % 0.5 % (0-4); Lymphocytes # 1.5 K/mcL (0.6-4.6); Lymphocytes % 16.7 %; Mean Corpuscular HGB Conc 31.8 g/dL (31.6-35.5); Mean Corpuscular Hemoglobin 28.1 pg (28.0-33.3); Mean Corpuscular Volume 88.2 fL (83.0-100.0); Mean Platelet Volume 11.4 fL (9.4-12.4); Monocytes # 0.7 K/mcL (0.0-1.3); Monocytes % 7.5 %; Neutrophils # 6.7 K/mcL (1.6-8.9); Platelet Count 178 K/mcL (140-400); Red Blood Count 3.99 M/mcL (4.19-5.50); Red Cell Distribution Width 13.9 % (11.5-14.5); Segmented Neutrophils % 72.5 %; White Blood Count 9.2 K/mcL (4.3-11.1)
[2019-11-03] MEDS: Insulin LISPRO 300 UNITS/3 ML VIAL SQ SCH ×3 (09:09→16:37)
[2019-11-03] MEDS: Isosorbide MONOnitrate (24 HR) 30 MG TAB.ER.24H PO SCH (09:10)
[2019-11-03] MEDS: amLODIPine 5 MG TABLET PO SCH ×2 (09:10→10:44)
[2019-11-03] MEDS: Gabapentin 300 MG CAPSULE PO SCH ×3 (09:10→20:42)
[2019-11-03] MEDS: Torsemide 20 MG TABLET PO SCH (09:10)
[2019-11-03] MEDS: carvediloL 6.25 MG TABLET PO SCH ×2 (09:10→16:37)
[2019-11-03] MEDS: Spironolactone 25 MG TABLET PO SCH (09:11)
[2019-11-03 09:28] LABS: Calcium 8.4 mg/dL (8.6-10.3)
[2019-11-03] MEDS: Ringers Solution, Lactated 1,000 ML IVC SCH (16:38)
[2019-11-04] MEDS: *HR* OxyCODONE/APAP 5/325 TABLET PO PRN ×5 (00:36→21:46)
[2019-11-04] MEDS: Spironolactone 25 MG TABLET PO SCH (08:02)
[2019-11-04] MEDS: Gabapentin 300 MG CAPSULE PO SCH ×3 (08:02→20:33)
[2019-11-04] MEDS: carvediloL 6.25 MG TABLET PO SCH (08:02)
[2019-11-04] MEDS: Insulin LISPRO 300 UNITS/3 ML VIAL SQ SCH ×3 (08:03→17:42)
[2019-11-04] MEDS: Isosorbide MONOnitrate (24 HR) 30 MG TAB.ER.24H PO SCH (08:03)
[2019-11-04] MEDS: amLODIPine 5 MG TABLET PO SCH (08:03)
[2019-11-04] MEDS: Torsemide 20 MG TABLET PO SCH (08:03)
[2019-11-04 10:31] LABS: Basophils % 0.2 %; Eosinophils # 0.6 K/mcL (0.0-0.6); Hematocrit 36.2 % (37.5-50.1); Hemoglobin 11.1 g/dL (12.9-16.9); Immature Granulocytes % 0.7 % (0-4); Lymphocytes # 1.2 K/mcL (0.6-4.6); Lymphocytes % 14.3 %; Mean Corpuscular HGB Conc 30.7 g/dL (31.6-35.5); Mean Corpuscular Hemoglobin 27.7 pg (28.0-33.3); Mean Corpuscular Volume 90.3 fL (83.0-100.0); Mean Platelet Volume 11.3 fL (9.4-12.4); Monocytes # 0.6 K/mcL (0.0-1.3); Monocytes % 7.2 %; Neutrophils # 5.9 K/mcL (1.6-8.9); Platelet Count 189 K/mcL (140-400); Red Blood Count 4.01 M/mcL (4.19-5.50); Red Cell Distribution Width 14.1 % (11.5-14.5); Segmented Neutrophils % 70.6 %; White Blood Count 8.3 K/mcL (4.3-11.1)
[2019-11-04 10:52] LABS: Calcium 8.4 mg/dL (8.6-10.3); Potassium 3.9 mEq/L (3.5-5.1)
[2019-11-05] MEDS: *HR* OxyCODONE/APAP 5/325 TABLET PO PRN ×3 (01:53→13:22)
[2019-11-05 05:34] LABS: Basophils # 0.1 K/mcL (0.0-0.2); Basophils % 0.6 %; Eosinophils # 0.5 K/mcL (0.0-0.6); Eosinophils % 6.7 %; Hematocrit 35.6 % (37.5-50.1); Hemoglobin 11.3 g/dL (12.9-16.9); Immature Granulocytes % 0.6 % (0-4); Lymphocytes # 1.2 K/mcL (0.6-4.6); Lymphocytes % 14.7 %; Mean Corpuscular HGB Conc 31.7 g/dL (31.6-35.5); Mean Corpuscular Hemoglobin 28.5 pg (28.0-33.3); Mean Corpuscular Volume 89.7 fL (83.0-100.0); Mean Platelet Volume 10.8 fL (9.4-12.4); Monocytes # 0.6 K/mcL (0.0-1.3); Monocytes % 7.6 %; Neutrophils # 5.6 K/mcL (1.6-8.9); Platelet Count 193 K/mcL (140-400); Red Blood Count 3.97 M/mcL (4.19-5.50); Red Cell Distribution Width 13.9 % (11.5-14.5); Segmented Neutrophils % 69.8 %
[2019-11-05 05:55] LABS: Calcium 8.3 mg/dL (8.6-10.3); Potassium 4.1 mEq/L (3.5-5.1)
[2019-11-05] MEDS ORDERED: carvediloL 25 MG TABLET PO SCH (09:28)
[2019-11-05] MEDS: Gabapentin 300 MG CAPSULE PO SCH (09:38)
[2019-11-05] MEDS: amLODIPine 5 MG TABLET PO SCH (09:39)
[2019-11-05] MEDS: Spironolactone 25 MG TABLET PO SCH (09:39)
[2019-11-05] MEDS: Isosorbide MONOnitrate (24 HR) 30 MG TAB.ER.24H PO SCH (09:39)
[2019-11-05] MEDS: Torsemide 20 MG TABLET PO SCH (09:40)
[2019-11-05] MEDS: Insulin LISPRO 300 UNITS/3 ML VIAL SQ SCH ×2 (09:40→13:22)
[2019-11-05 10:19] LABS: Magnesium 1.7 mg/dL (1.6-2.6)
[2019-11-05 10:48] VITALS: BP 142/97
[2019-11-05] MEDS ORDERED: cefTRIAXone 2,000 MG in Water for inj. (sterile) 20 ML IVP SCH (13:00)
== END 2019-11-05 15:11 | disposition other institution (70) | DRG 982 ==
LOC: SAMDAY 10:07 → 3ANU 15:31
PROVIDERS: ADMIT Student in an Organized Health Care Education/Training Program; ATTEND Podiatrist

== ENCOUNTER 2021-10-28 21:02 | Inpatient (IN) ==
[2021-10-29] MEDS ORDERED: Melatonin 3 MG TABLET PO PRN (00:10)
[2021-10-29] MEDS ORDERED: Naloxone 0.4 MG/ML INJ IVP PRN (00:10)
[2021-10-29] MEDS ORDERED: Ondansetron ODT 4 MG TAB.RAPDIS SL PRN (00:10)
[2021-10-29] MEDS ORDERED: Dextrose Gel 15 GM/37.5 ML TUBE PO PRN ×2 (00:50)
[2021-10-29] MEDS ORDERED: D5% in Water 1,000 ML IVC PRN (00:50)
[2021-10-29] MEDS ORDERED: *HR* Dextrose 50 % in Water (Syg) 50 ML SYRINGE IVP PRN (00:50)
[2021-10-29] MEDS ORDERED: *HR* HYDROcodone/Acet 5/325 mg TABLET PO PRN (00:52)
[2021-10-29 04:47] LABS: Hematocrit 35.4 % (37.5-50.1); Hemoglobin 11.3 g/dL (12.9-16.9); Mean Corpuscular HGB Conc 31.9 g/dL (31.6-35.5); Mean Corpuscular Hemoglobin 28.3 pg (28.0-33.3); Mean Corpuscular Volume 88.5 fL (83.0-100.0); Mean Platelet Volume 10.5 fL (9.4-12.4); Platelet Count 306 K/mcL (140-400); Red Cell Distribution Width 12.7 % (11.5-14.5); White Blood Count 8.1 K/mcL (4.3-11.1)
[2021-10-29 05:06] LABS: Calcium 8.8 mg/dL (8.6-10.3); Potassium 3.7 mEq/L (3.5-5.1)
[2021-10-29] MEDS: Insulin LISPRO 300 UNITS/3 ML VIAL SUBQ SCH ×3 (07:29→17:42)
[2021-10-29] MEDS: Insulin DETEMIR 100 UNIT/ML X5UNITS SUBQ SCH ×2 (08:48→22:05)
[2021-10-29] MEDS: *HR* HYDROcodone/Acet 10/325 mg TABLET PO PRN ×2 (08:48→15:02)
[2021-10-29] MEDS: carvediloL 6.25 MG TABLET PO SCH ×2 (08:48→18:25)
[2021-10-29] MEDS ORDERED: *HR* OxyCODONE/APAP 10/325 TABLET PO ONE (22:02)
[2021-10-29] MEDS: Gabapentin 400 MG CAPSULE PO SCH (22:02)
[2021-10-30] MEDS: Insulin LISPRO 300 UNITS/3 ML VIAL SUBQ SCH ×4 (00:15→21:35)
[2021-10-30 04:07] LABS: Basophils # 0.1 K/mcL (0.0-0.2); Basophils % 0.7 %; Eosinophils # 0.5 K/mcL (0.0-0.6); Eosinophils % 5.9 %; Hematocrit 35.8 % (37.5-50.1); Hemoglobin 11.3 g/dL (12.9-16.9); Lymphocytes # 1.6 K/mcL (0.6-4.6); Lymphocytes % 19.8 %; Mean Corpuscular HGB Conc 31.6 g/dL (31.6-35.5); Mean Corpuscular Hemoglobin 28.2 pg (28.0-33.3); Mean Corpuscular Volume 89.3 fL (83.0-100.0); Monocytes # 0.6 K/mcL (0.0-1.3); Monocytes % 7.8 %; Neutrophils # 5.3 K/mcL (1.6-8.9); Platelet Count 304 K/mcL (140-400); Red Blood Count 4.01 M/mcL (4.19-5.50); Red Cell Distribution Width 12.6 % (11.5-14.5); Segmented Neutrophils % 64.8 %; White Blood Count 8.1 K/mcL (4.3-11.1)
[2021-10-30 04:26] LABS: Calcium 8.9 mg/dL (8.6-10.3); Magnesium 2.2 mg/dL (1.6-2.6); Phosphorous 3.2 mg/dL (2.7-4.5); Potassium 4.2 mEq/L (3.5-5.1)
[2021-10-30] MEDS ORDERED: calcitrioL 0.25 MCG CAPSULE PO SCH ×2 (08:00→17:11)
[2021-10-30] MEDS ORDERED: Bumetanide 1 MG TABLET PO SCH (09:00)
[2021-10-30] MEDS ORDERED: NON-FORMULARY MEDICATION 1 EACH EACH (Atorvastatin Calcium [Lipitor] 80 MG Tablet) PO SCH (09:00)
[2021-10-30] MEDS ORDERED: lisinopriL 20 MG TABLET PO SCH (09:00)
[2021-10-30] MEDS: carvediloL 6.25 MG TABLET PO SCH ×2 (10:28→16:01)
[2021-10-30] MEDS: Gabapentin 400 MG CAPSULE PO SCH (10:29)
[2021-10-30] MEDS: *HR* HYDROcodone/Acet 10/325 mg TABLET PO PRN ×3 (10:29→21:34)
[2021-10-30] MEDS: Insulin DETEMIR 100 UNIT/ML X5UNITS SUBQ SCH ×2 (10:30→21:38)
[2021-10-30] MEDS ORDERED: Acetaminophen IV 1,000 MG/100 ML BAG IVPB ONE (10:48)
[2021-10-30] MEDS ORDERED: Famotidine 20 MG/2 ML VIAL IVP ONE (10:48)
[2021-10-30] MEDS ORDERED: CeFAZolin Syr 2,000MG/20 ML 2,000 MG/20 ML SYRINGE IVPB ONE (11:00)
[2021-10-30] MEDS ORDERED: Bupivacaine/EPI 1:200k 0.25% 50 ML VIAL ONE (11:43)
[2021-10-30] MEDS ORDERED: Lidocaine 1% 20 ML MDV ONE (11:44)
[2021-10-30] MEDS ORDERED: *HR* FentaNYL (PF) 100 MCG/2 ML VIAL ONE (11:54)
[2021-10-30] MEDS ORDERED: *HR* Propofol 200 MG/20 ML VIAL IVP ONE (14:18)
[2021-10-30] MEDS ORDERED: Gabapentin 300 MG CAPSULE PO SCH (15:00)
[2021-10-30] MEDS ORDERED: D5% in Water 1,000 ML IVC PRN (17:11)
[2021-10-30] MEDS ORDERED: Ondansetron ODT 4 MG TAB.RAPDIS SL PRN (17:11)
[2021-10-30] MEDS ORDERED: Dextrose Gel 15 GM/37.5 ML TUBE PO PRN ×2 (17:11)
[2021-10-30] MEDS ORDERED: *HR* HYDROcodone/Acet 5/325 mg TABLET PO PRN (17:11)
[2021-10-30] MEDS ORDERED: Melatonin 3 MG TABLET PO PRN (17:11)
[2021-10-30] MEDS ORDERED: Naloxone 0.4 MG/ML INJ IVP PRN (17:11)
[2021-10-30] MEDS ORDERED: *HR* Dextrose 50 % in Water (Syg) 50 ML SYRINGE IVP PRN (17:11)
[2021-10-30] MEDS ORDERED: 0.9 % Sodium Chloride 1,000 ML IV SCH (17:30)
[2021-10-30] MEDS: Bumetanide 1 MG TABLET PO SCH (21:33)
[2021-10-30] MEDS: Gabapentin 300 MG CAPSULE PO SCH (21:34)
[2021-10-31] MEDS: *HR* HYDROcodone/Acet 10/325 mg TABLET PO PRN ×3 (04:12→20:45)
[2021-10-31] MEDS: Insulin LISPRO 300 UNITS/3 ML VIAL SUBQ SCH ×4 (04:55→16:59)
[2021-10-31 08:04] LABS: Basophils % 0.2 %; Eosinophils % 0.1 %; Hematocrit 36.6 % (37.5-50.1); Hemoglobin 11.6 g/dL (12.9-16.9); Immature Granulocytes % 0.6 % (0-4); Lymphocytes % 8.6 %; Mean Corpuscular HGB Conc 31.7 g/dL (31.6-35.5); Mean Corpuscular Hemoglobin 28.2 pg (28.0-33.3); Mean Corpuscular Volume 89.1 fL (83.0-100.0); Mean Platelet Volume 10.4 fL (9.4-12.4); Monocytes % 8.3 %; Neutrophils # 9.5 K/mcL (1.6-8.9); Platelet Count 330 K/mcL (140-400); Red Blood Count 4.11 M/mcL (4.19-5.50); Red Cell Distribution Width 12.5 % (11.5-14.5); Segmented Neutrophils % 82.2 %; White Blood Count 11.6 K/mcL (4.3-11.1)
[2021-10-31 08:24] LABS: Calcium 8.8 mg/dL (8.6-10.3); Potassium 4.1 mEq/L (3.5-5.1)
[2021-10-31] MEDS: Gabapentin 300 MG CAPSULE PO SCH ×3 (08:25→20:40)
[2021-10-31] MEDS: carvediloL 6.25 MG TABLET PO SCH ×2 (08:25→15:58)
[2021-10-31] MEDS: lisinopriL 20 MG TABLET PO SCH (08:26)
[2021-10-31] MEDS: Insulin DETEMIR 100 UNIT/ML X5UNITS SUBQ SCH ×2 (08:26→20:46)
[2021-10-31] MEDS: Bumetanide 1 MG TABLET PO SCH ×2 (08:26→15:58)
[2021-10-31 20:26] LABS: Bilirubin,Urine Negative (Negative); Blood,Urine Small (Negative); Budding Yeast,Urine Few per hpf (None Seen); Clarity,Urine Ex.Turbid (Clear); Color,Urine Yellow (Yellow); Glucose,Urine (UA) 30 mg/dL (Normal); Hyaline Casts,Urine Many per lpf (None Seen); Ketones,Urine Negative (Negative); Leukocyte Esterase,Urine Large (Negative); Mucus,Urine Few per lpf (None-Few); Nitrite,Urine Negative (Negative); PH,Urine 5.5 pH Units (5.0-8.0); Protein,Urine 50 mg/dL (Neg-Trace); Renal Epithelial Cells,Urine Few per hpf (None-Few); Specific Gravity,Urine 1.015 (1.010-1.025); Squamous Epithelial Cell,Urine Few per hpf (None-Few); Transitional Epi Cells,Urine Few per hpf (None-Few); Urobilinogen,Urine Normal (Normal); WBC,Urine TNTC per hpf (0-3)
[2021-11-01 01:40] LABS: Hematocrit 34.8 % (37.5-50.1); Hemoglobin 11.1 g/dL (12.9-16.9); Mean Corpuscular HGB Conc 31.9 g/dL (31.6-35.5); Mean Corpuscular Hemoglobin 28.8 pg (28.0-33.3); Mean Corpuscular Volume 90.2 fL (83.0-100.0); Mean Platelet Volume 10.5 fL (9.4-12.4); Platelet Count 307 K/mcL (140-400); Red Blood Count 3.86 M/mcL (4.19-5.50); Red Cell Distribution Width 12.7 % (11.5-14.5); White Blood Count 10.9 K/mcL (4.3-11.1)
[2021-11-01 02:11] LABS: Calcium 8.7 mg/dL (8.6-10.3); Potassium 3.6 mEq/L (3.5-5.1)
[2021-11-01] MEDS: Insulin LISPRO 300 UNITS/3 ML VIAL SUBQ SCH ×4 (04:59→16:41)
[2021-11-01] MEDS: Bumetanide 1 MG TABLET PO SCH ×2 (07:33→16:33)
[2021-11-01] MEDS: carvediloL 6.25 MG TABLET PO SCH ×2 (07:33→16:33)
[2021-11-01] MEDS: Gabapentin 300 MG CAPSULE PO SCH ×3 (07:33→21:13)
[2021-11-01] MEDS: lisinopriL 20 MG TABLET PO SCH (07:33)
[2021-11-01] MEDS: Insulin DETEMIR 100 UNIT/ML X5UNITS SUBQ SCH ×2 (07:35→21:14)
[2021-11-01] MEDS ORDERED: Ringers Solution, Lactated 1,000 ML IVC SCH ×2 (08:00→08:01)
[2021-11-01] MEDS: *HR* HYDROcodone/Acet 10/325 mg TABLET PO PRN ×2 (12:17→21:15)
[2021-11-01] MEDS: *HR* Heparin 5,000 UNIT/ML VIAL SQ SCH ×2 (16:34→21:14)
[2021-11-02] MEDS: Insulin LISPRO 300 UNITS/3 ML VIAL SUBQ SCH ×2 (00:13→12:35)
[2021-11-02] MEDS: *HR* HYDROcodone/Acet 10/325 mg TABLET PO PRN ×3 (03:59→16:59)
[2021-11-02 04:00] LABS: Calcium 8.3 mg/dL (8.6-10.3); Potassium 3.5 mEq/L (3.5-5.1)
[2021-11-02] MEDS: *HR* Heparin 5,000 UNIT/ML VIAL SQ SCH ×2 (05:58→15:04)
[2021-11-02] MEDS ORDERED: calcitrioL 0.25 MCG CAPSULE PO SCH (09:00)
[2021-11-02] MEDS: Bumetanide 1 MG TABLET PO SCH (10:38)
[2021-11-02] MEDS: Gabapentin 300 MG CAPSULE PO SCH ×2 (10:38→14:59)
[2021-11-02] MEDS: carvediloL 6.25 MG TABLET PO SCH (10:39)
[2021-11-02] MEDS: lisinopriL 20 MG TABLET PO SCH (10:39)
[2021-11-02] MEDS: Insulin DETEMIR 100 UNIT/ML X5UNITS SUBQ SCH (10:40)
[2021-11-02 11:02] VITALS: O2SAT 94
[2021-11-02 13:55] LABS: Influenza A PCR Negative (Negative); Influenza B PCR Negative (Negative); Resp. Syncytial Virus PCR Negative (Negative)
[2021-11-02 14:48] VITALS: BP 112/61; PULSE 70; TEMP 98
[2021-11-02 15:09] LABS: SARS-CoV-2 by PCR (In House) Negative (Negative)
== END 2021-11-02 17:07 | DRG 504 ==
LOC: 3ANU → SUATTDRO 22:56
PROVIDERS: ADMIT Student in an Organized Health Care Education/Training Program; ATTEND Internal Medicine